=== PATIENT | male | born 1950 | race Caucasian/White ===

== ENCOUNTER 2025-08-10 12:46 | Outpatient (CLI) | payer MEDICARE, OTHER, SELFPAY | END 2025-08-10 12:47 | disposition home or self-care (01) | LOC: WOUND 12:52 | PROVIDERS: Family Provider Physician Assistant; PCP Physician Assistant; Visit Provider Nurse Practitioner Family | DX: I87.312 Chronic venous hypertension (idiopathic) with ulcer of left lower extremity (principal); L97.822 Non-pressure chronic ulcer of other part of left lower leg with fat layer exposed | CPT/HCPCS: 11042; G0463 ==

== ENCOUNTER 2025-08-17 09:31 | Outpatient (CLI) | payer MEDICARE, OTHER, SELFPAY | END 2025-08-17 09:32 | disposition home or self-care (01) | LOC: WOUND 09:32 | PROVIDERS: PCP Physician Assistant; Visit Provider Nurse Practitioner Family | DX: I87.312 Chronic venous hypertension (idiopathic) with ulcer of left lower extremity (principal); L97.822 Non-pressure chronic ulcer of other part of left lower leg with fat layer exposed | CPT/HCPCS: 11042 ==

== ENCOUNTER 2025-08-24 15:01 | Outpatient (CLI) | payer MEDICARE, OTHER, SELFPAY | END 2025-08-24 15:02 | disposition home or self-care (01) | LOC: WOUND 15:02 | PROVIDERS: PCP Physician Assistant; Visit Provider Nurse Practitioner Family | DX: I87.312 Chronic venous hypertension (idiopathic) with ulcer of left lower extremity (principal); L97.821 Non-pressure chronic ulcer of other part of left lower leg limited to breakdown of skin | CPT/HCPCS: G0463 ==